=== PATIENT | male | born 1960 | race Caucasian/White ===

== ENCOUNTER 2017-07-09 22:41 | Emergency (ER) | payer OTHER, BC ==
[~2017-07-09] VITALS: Ht 182.9 cm; Wt 134.1 kg
[2017-07-09 22:52] VITALS: BP 127/72; PULSE 99; RESP 16; TEMP 97.7; O2SAT 98
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
[2017-07-09] MEDS ORDERED: NOVOLOGP2 SQ (23:03)
[2017-07-09] MEDS ORDERED: METF850T PO (23:03)
[2017-07-09] MEDS ORDERED: ROSU20 PO (23:03)
[2017-07-09] MEDS ORDERED: LEVEMIR SQ (23:03)
[2017-07-09] MEDS ORDERED: LISI10TA3 PO (23:03)
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
[2017-07-10] MEDS ORDERED: HYDROmorphone HCL PF 2 MG/ML VIAL IV PUSH ONE (00:30)
[2017-07-10] MEDS ORDERED: ONDANSETRON HCL 4 MG/2 ML VIAL IV PUSH ONE (00:30)
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
[2017-07-10] MEDS ORDERED: MIRA3350 PO (01:08)
[2017-07-10] MEDS ORDERED: ZOFR8TAB4 SL (01:08)
[2017-07-10] MEDS ORDERED: PERC10TA27 PO (01:08)
[2017-07-10] MEDS ORDERED: HYDROmorphone HCL PF 1 MG/ML VIAL IV PUSH ONE (01:30)
== END 2017-07-10 02:13 | disposition home or self-care (01) ==
LOC: NEPC 22:41
DX: S42.002A Fracture of unspecified part of left clavicle, initial encounter for closed fracture (principal); S22.42XA Multiple fractures of ribs, left side, initial encounter for closed fracture; V29.69XA Unspecified motorcycle rider injured in collision with other motor vehicles in traffic accident, initial encounter; E11.9 Type 2 diabetes mellitus without complications; I10 Essential (primary) hypertension; E78.00 Pure hypercholesterolemia, unspecified; Z72.0 Tobacco use
CPT/HCPCS: 70450; 71045; 71250; 72020; 72125; 72170; 73030; 73060; 74176; 96374; 96375; 96376; 99284; J1170; J2405